=== PATIENT | male | born 1970 | race Caucasian/White ===

== ENCOUNTER 2022-09-27 14:49 | Emergency (ER) | payer SELFPAY ==
[2022-09-27 15:23] VITALS: BP 141/99; PULSE 70; RESP 19; TEMP 97.8; BMI 24.9
== END 2022-09-27 15:15 | disposition left against medical advice (07) ==
LOC: JER 14:49
DX: R00.2 Palpitations (principal)
CPT/HCPCS: 93005; 93010; 99283-25